=== PATIENT | female | born 1960 ===

== ENCOUNTER 2016-09-03 07:12 | Day surgery (SDC) | payer MEDICARE, MEDICAID ==
[2016-08-29 13:10] VITALS: BMI 36.1
[2016-09-03] MEDS ORDERED: Propofol 10 mg/ml Inj (20 ML) ONE (12:14)
[2016-09-03] MEDS ORDERED: Midazolam 2 MG/2 ML VIAL ONE (12:14)
[2016-09-03] MEDS ORDERED: Lidocaine Hydrochloride 5 ML INJ ONE (12:15)
[2016-09-03] MEDS ORDERED: Phenylephrine 10 mg/ml Inj ONE (12:15)
[2016-09-03] MEDS ORDERED: Lactated Ringer's 1,000 ML IV ONE (12:30)
[2016-09-03] MEDS ORDERED: Bupivacaine HCl 0.25% PF (10 ml) Inj ONE (12:54)
[2016-09-03] MEDS ORDERED: Bacitracin 500 Units/gm Oint Foilpak UD ONE (12:54)
[2016-09-03] MEDS ORDERED: HYDROmorphone 0.5 mg/0.5 ml ISec IVP PRN (13:30)
--- NOTE | 2016-09-03 13:45 | PCM.SURG1 ---
Surgeon's Initial Post Op Note - Surgeon's Notes Surgeon: Dr. Lam Under Water Assistant: Dr. Escobedo PGY-2 Type of Anesthesia: General Endo Pre-Operative Diagnosis: Right thoracic outlet syndrome Operative Findings: see operative report Post-Operative Diagnosis: Right thoracic outlet syndrome Operation Performed: Right anterior and middle scalenectomy Specimen/Specimens Removed: scalene muscle Estimated Blood Loss: EBL {In ML}: 15 Blood Products Given: N/A Drains Used: No Drains Post-Op Condition: Good Date of Surgery/Procedure: 09/03/16 Time of Surgery/Procedure: 13:46
[2016-09-03 15:01] VITALS: RESP 16
[2016-09-03 15:56] VITALS: BP 101/51; PULSE 80; TEMP 97.4; O2SAT 100
--- NOTE | 2016-09-18 06:35 | OP ---
PROCEDURE DATE: 09/03/2016 PREOPERATIVE DIAGNOSES: Right thoracic outlet syndrome; right brachioplexopathy; right torticollis. POSTOPERATIVE DIAGNOSES: Right thoracic outlet syndrome; right brachioplexopathy; right torticollis. PROCEDURE: Right anterior and middle scalenectomy; neurolysis, right brachial plexus upper, middle, and lower trunks. SURGEON: Haley Lam MD ANESTHESIA: General. ESTIMATED BLOOD LOSS: Less than 20 mL. DESCRIPTION OF PROCEDURE: The patient was identified. Consent was confirmed in the preoperative hol ding area. The patient was taken to the operating room and [facility]. Anesthesia was induced. The patient's extremity was then prepped and draped in usual sterile fashion. The patient's right neck and chest were prepped and draped in the usual sterile fas hion. A knife incision was made in zigzag fashion on the lower neck in the supraclavicular area foll owed by blunt dissection to the subcutaneous tissues to the level of platysma which was split paralle l to the fibers in blunt fashion. Blunt dissection was carried out through the supraclavicular fat p ad with identification and preservation of the supraclavicular nerves throughout the procedure to the level of the interscalene triangle. The brachial plexus upper trunk was identified. With a combina tion of blunt dissection and retraction, the anterior and middle scalene muscles were exposed. The p hrenic and spinal accessory nerves were identified and preserved throughout the procedure over the an terior and middle scalene muscles respectively. With blunt technique and piecemeal excision, the ant erior scalene muscle was excised including the distal tendinous portions. The middle scalene muscle was similarly excised in piecemeal fashion with identification and preservation of spinal accessory n erve throughout the procedure. The subclavian artery was noted to have scarring and was addressed wi th arteriolysis with a combination of blunt and sharp technique to alleviate any focal compression ba nds. Serial nerve stimulation of the nerve structures as identified was carried out throughout the p rocedure to ensure satisfactory stimulation throughout. Next, the upper, middle, and lower trunks of the brachial plexus were addressed with blunt dissection and external neurolysis to allow satisfacto ry excursion without restriction with gentle range of motion of the neck and upper extremity. Subcla vicular interval was noted to be patent with fingertip test. At this time, after flooding the wound with saline and Valsalva maneuver to 25 mmHg by anesthesia, no air leak was confirmed. Serial stimul ation to the brachial plexus revealed stronger contractions neurolysis and decompression. The platysma was closed with interrupted [id number] absorbable suture closure, followed by absorbabl e suture layered closure of the skin. Antibiotic ointment and sterile dressing was applied. The pat ient tolerated the procedure well and transported in stable condition to postanesthesia care unit. Haley Lam MD cc: [id number] TT: 09/17/2016 19:24:51 colette
== END 2016-09-03 16:00 | disposition home or self-care (01) ==
LOC: EDBD → C.SDS 07:12
PROVIDERS: ATTEND Plastic Surgery Surgery of the Hand
DX: G54.0 Brachial plexus disorders (principal); M43.6 Torticollis; E11.9 Type 2 diabetes mellitus without complications; I10 Essential (primary) hypertension; Z98.1 Arthrodesis status; J45.909 Unspecified asthma, uncomplicated; Z88.0 Allergy status to penicillin; Z79.84 Long term (current) use of oral hypoglycemic drugs; Z79.891 Long term (current) use of opiate analgesic; E66.9 Obesity, unspecified; Z68.36 Body mass index [BMI] 36.0-36.9, adult; J32.9 Chronic sinusitis, unspecified
CPT/HCPCS: 21700; 82948; J2250; J2370; J2704; J3010; J7120

== ENCOUNTER 2017-02-18 06:29 | Day surgery (SDC) | payer MEDICARE, MEDICAID ==
[2016-08-29 12:56] VITALS: BMI 36.1
[2017-02-18] MEDS ORDERED: Iohexol 240 (50 ml) ONE (07:50)
[2017-02-18] MEDS ORDERED: Bupivacaine HCl 0.25% PF (10 ml) Inj ONE (07:50)
[2017-02-18] MEDS ORDERED: Lidocaine 1% Inj (20ml) ONE (07:50)
[2017-02-18] MEDS ORDERED: MethylPREDNISolone Depo 40 mg/ml Inj ONE ×2 (07:51→08:04)
[2017-02-18] MEDS ORDERED: Midazolam 2 MG/2 ML VIAL ONE (08:01)
[2017-02-18] MEDS ORDERED: Propofol 10 mg/ml Inj (20 ML) ONE (08:15)
[2017-02-18] MEDS ORDERED: Sodium Chloride 0.9% 1,000 ML IV ONE (08:31)
[2017-02-18] MEDS ORDERED: Lidocaine Hydrochloride 5 ML INJ ONE (08:40)
[2017-02-18 08:51] VITALS: O2SAT 100
[2017-02-18 11:37] VITALS: BP 104/69; PULSE 79; RESP 18; TEMP 98.4
--- NOTE | 2017-02-19 10:48 | RAD ---
PROCEDURE: Intraoperative Fluoroscopy. HISTORY: CERVICAL SPONDYLOSIS FINDINGS: Fluoroscopic assistance was provided for mid cervical nerve block.
== END 2017-02-18 09:40 | disposition home or self-care (01) ==
LOC: C.SDS 06:29
PROVIDERS: ATTEND Anesthesiology Pain Medicine
DX: M47.12 Other spondylosis with myelopathy, cervical region (principal)
CPT/HCPCS: 64490; 76000; 82948; J1030; J2250; J2704; J3010; J7040

== ENCOUNTER 2018-01-27 09:26 | Day surgery (SDC) | payer MEDICARE, MEDICAID ==
[2016-08-29 12:56] VITALS: BMI 36.1
[~2018-01-27 09:26] MED LIST: Bupivacaine 0.75% Inj(30mL) ONE; Iohexol 240 (50 ml) ONE; Lidocaine 2% MPF (5 ml) Inj ONE; MethylPREDNISolone Depo 40 mg/ml Inj ONE
[2018-01-27] MEDS ORDERED: Propofol 10 mg/ml Inj (20 ML) ONE (11:03)
[2018-01-27] MEDS ORDERED: Lidocaine 2% MPF (5 ml) Inj ONE (12:04)
[2018-01-27 12:39] VITALS: BP 122/77; PULSE 72; RESP 16; TEMP 98; O2SAT 99
--- NOTE | 2018-01-27 16:47 | RAD ---
Date of service: 01/27/2018 PROCEDURE: Intraoperative Fluoroscopy. HISTORY: CERVICAL SPONDYLOSIS FINDINGS: Fluoroscopic assistance was provided for cervical spine radiofrequency medial branch ablation at the C3, 4, 5, 6 levels.. Please refer to the operative report from HEBER Hernandez.
--- NOTE | 2018-02-10 06:42 | OP ---
PROCEDURE DATE: 01/27/2018 PREOPERATIVE DIAGNOSIS: Cervical spondylosis. POSTOPERATIVE DIAGNOSIS: Cervical spondylosis. PROCEDURES: 1. Cervical medial branch (facet) nerve radiofrequency thermal ablation. 2. Levels C3-C4, C4-C5, and C6-C7 bilateral. 3. X- Ray: Fluoroscopic guidance, spine. ANESTHESIA: Local anesthesia and MAC. SURGEON: Jose Lam MD COMPLICATIONS: None. BLOOD LOSS: 2mL. INDICATION: On physical exam, the pain was made worse by side bending toward the affected side or extending the spine (backward bending). A medial branch diagnostic injection reveals that the pain at least partially originates in the facet joints or its nerves, and that the radiofrequency procedure can reasonably be expected to provide long-term relief. The pain continues to adversely affect quality of life and activities of daily living. TECHNIQUE: After comprehensive informed consent was obtained, the risks of the procedure explained and questions answered. With the patient positioned prone on the fluoroscopy table, the skin was prepped in sterile fashion with chlorhexidine. Strict aseptic technique was used. The fluoroscope was angled obliquely about 15 degrees in the sagittal plane and 5 degrees laterally. 1% lidocaine was used for skin and deep tissue anesthesia. A 22-gauge, 100-mm insulated radiofrequency needle with 5-mm exposed tip was inserted and directed ventro-medially to position the active tip adjacent to the right and then the left cervical articular pillar, in contact with bone midway between the zygapophyseal joints above and below. The patient experienced no paresthesia during needle placement. A radiofrequency lesion generator was used for electrical stimulation and lesion creation. In the final needle position, sensory stimulation at 50 Hz, 1 millisecond pulse duration recreated the patient's neck pain at a threshold of less than 1 V without causing arm pain. Motor stimulation at 2 Hz, 1 millisecond pulse duration failed to recruit the ventral root (arm movement) at up to 2 V. Erector spinae muscle stimulation was detected at 1 V at all levels. On lateral fluoroscopy, the needle tip was seen to be posterior to the neural foramen. After negative aspiration for blood and CSF, 1mLof 1% lidocaine was injected prior to thermal lesioning. A lesion was made for 60 seconds at 60 degrees Celsius. The procedure was repeated in the same fashion at the other vertebral levels. Following the procedure, neurological function of the arms was at baseline. DISPOSITION: Following the procedure, neurological function of the arms was at baseline. The patient recovered uneventfully, and the patient was discharged in stable condition. Jose Lam MD
== END 2018-01-27 13:06 | disposition home or self-care (01) ==
LOC: C.SDS 09:26
PROVIDERS: ATTEND Anesthesiology Pain Medicine
DX: M47.812 Spondylosis without myelopathy or radiculopathy, cervical region (principal); M47.814 Spondylosis without myelopathy or radiculopathy, thoracic region; M54.2 Cervicalgia
CPT/HCPCS: 64633; 82948; J2001; J2704